=== PATIENT | female | born 1950 | race Caucasian/White ===

== ENCOUNTER 2024-11-08 10:07 | Observation (INO) | payer OTHER ==
[2024-10-30 16:26] LABS: BILIRUBIN,URINE NEGATIVE (Neg); CLARITY,URINE CLEAR (Clear); COLOR,URINE YELLOW (Yellow); GLUCOSE, URINE NEGATIVE (Neg); KETONES,URINE NEGATIVE (Neg); LEUKOCYTE ESTERASE ,URINE MODERATE (Neg); NITRITES, URINE NEGATIVE (Neg); OCCULT BLOOD,URINE NEGATIVE (Neg); PROTEIN,URINE NEGATIVE (Neg); UROBILINOGEN,URINE 0.2 E.U/dL (0.2-1.0)
[2024-10-30 16:35] LABS: UA COLLECTION TYPE CLN CATCH MIDSTREAM
[2024-10-30 16:37] LABS: BACTERIA,URINE FEW /HPF (Neg); MUCUS STRANDS FEW /LPF (Neg); RBC,URINE 0-2 /HPF (0-2); SQUAMOUS EPITHELIAL CELL,UR MODERATE /LPF (FEW); TRANSITIONAL EPI CELLS,URINE FEW /HPF; WBC CLUMPS,URINE FEW /HPF (NEGATIVE)
[2024-10-30 16:45] LABS: BASOPHILS % (AUTO) 0.6 % (0-1); EOSINOPHILS # (AUTO) 0.2 X10'3 (0-0.9); EOSINOPHILS % (AUTO) 2.5 % (0-6); LYMPHOCYTES # (AUTO) 2.5 X10'3 (1.1-4.8); LYMPHOCYTES % (AUTO) 37.2 % (21-51); MEAN CORPUSCULAR HEMOGLOBIN 31.6 PG (27.0-31.0); MEAN CORPUSCULAR HGB CONC 34.2 g/dL (33.0-36.5); MEAN CORPUSCULAR VOLUME 92.4 FL (78-98); MEAN PLATELET VOLUME 7.8 FL (7.4-10.4); MONOCYTES # (AUTO) 0.6 X10'3 (0-0.9); MONOCYTES % (AUTO) 8.7 % (2-12); NEUTROPHILS # (AUTO) 3.4 X10'3 (1.8-7.7); PRE OP HEMATOCRIT 41.3 % (35.0-45.0); PRE OP HEMOGLOBIN 14.1 g/dL (12.0-16.0); PRE OP PLATELET COUNT 275 X10'3 (140-440); PRE OP WHITE BLOOD COUNT 6.6 10'3 (4.8-10.8); RED BLOOD COUNT 4.47 X10'6 (4.20-5.60); RED CELL DISTRIBUTION WIDTH 12.7 % (11.5-14.5)
[2024-10-30 16:49] LABS: ALBUMIN 4.1 G/DL (3.4-5.0); ALKALINE PHOSPHATASE 64 IU/L (46-116); BLOOD UREA NITROGEN 17 MG/DL (7-18); BUN/CREATININE RATIO 18.5 (10.0-20.0); CALCIUM 9.5 MG/DL (8.5-10.1); CHLORIDE 106 MMOL/L (99-107); CREATININE 0.92 MG/DL (0.40-0.90); PRE OP ALT 25 U/L (30-65); PRE OP ANION GAP 4 (8-16); PRE OP AST 18 U/L (10-37); PRE OP BILIRUB, TOTAL 0.3 MG/DL (0.0-1.0); PRE OP GLUCOSE 84 MG/DL (70-104); PRE OP POTASSIUM 3.9 MMOL/L (3.4-5.1); PRE OP SODIUM 141 MMOL/L (135-145); TOTAL CARBON DIOXIDE 31.1 MMOL/L (24-32); TOTAL PROTEIN 8.1 G/DL (6.4-8.2); eGFR 60 ML/MIN
[2024-11-08] VITALS (23 sets, daily range): BP systolic 109–159; BP diastolic 52–70; PULSE 51–89; RESP 9–18; TEMP 97.7–97.8; O2SAT 98–100
[~2024-11-08] VITALS: Ht 162.6 cm; Wt 55.3 kg
[2024-11-08] MEDS: famotidine 20mg tablet PO ONE (05:30)
[~2024-11-08 10:07] MED LIST: ROSU5TAB51 PO; enalaprilat dihydrate 2.5mg/2ml vial IV PRN; labetalol 20mg/4ml (5mg/ml) syringe IV PRN; meperidine/PF 25mg/ml syringe IV PRN; morphine 2 MG/ML inj. syringe IV PRN; morphine 4 MG/ML inj SYRINge IV PRN; ondansetron/PF 4mg/2ml inj IV PRN; proCHLORperazine 10 MG/2 ml inj IV PRN
[2024-11-08] MEDS: ceFOXitin sod/dextrose 2g/50ml 50 ML IV ONE (11:06)
[2024-11-08] MEDS ORDERED: clindamycin phosphate 40gm vag cream ONE (15:09)
[2024-11-08] MEDS ORDERED: vasoPRESSIN 20 units/ml inj. ONE (15:10)
[2024-11-08] MEDS ORDERED: gentamicin 40 MG/1 ML inj ONE (15:10)
[2024-11-08] MEDS ORDERED: neomy sulf/polymyxin B sulf. GU irrigation 1ml amp IR ONE (15:12)
[2024-11-08] MEDS ORDERED: propofol inj 20 ML IV ONE (15:20)
[2024-11-08] MEDS ORDERED: LIDOcaine 2% (20mg/ml) 5ml vial ONE (15:20)
[2024-11-08] MEDS ORDERED: fentaNYL/PF 50MCG/1 ML 2ML syringe ONE (15:20)
[2024-11-08] MEDS ORDERED: midazolam 1 mg/ML 2ml injection ONE (15:20)
[2024-11-08] MEDS ORDERED: sevoflurane 250ml liquid IH ONE (15:22)
[2024-11-08] MEDS ORDERED: dexamethasone sod phosphate 4mg/ml inj. ONE (15:36)
[2024-11-08] MEDS ORDERED: acetaminophen 1,000mg/100ml IV 100 ML IV ONE (16:12)
[2024-11-08] MEDS ORDERED: LORazepam 2 mg/ml vial IV PRN (17:00)
[2024-11-08] MEDS ORDERED: temazepam 15mg capsule PO PRN (17:00)
[2024-11-08] MEDS ORDERED: diphenhydrAMINE 50 mg/ml inj IV PRN (17:00)
[2024-11-08] MEDS ORDERED: normal saline 500ml IV soln 500 ML IV PRN (17:00)
[2024-11-08] MEDS ORDERED: ondansetron/PF 4mg/2ml inj IV PRN (17:00)
[2024-11-08] MEDS ORDERED: magnesium hydroxide 30ml (MOM) UD suspension PO PRN (17:00)
[2024-11-08] MEDS ORDERED: metoclopramide 5 mg/ml inj IV PRN (17:00)
[2024-11-08] MEDS ORDERED: HYDROcodone/acetaminophen 10/325mg tab PO PRN ×2 (17:00)
[2024-11-08] MEDS: meperidine/PF 25mg/ml syringe IV PRN (17:38)
[2024-11-08] MEDS: ringers solution, lacted 1,000 ML IV SCH ×3 (18:38→21:26)
[2024-11-08] MEDS: docusate sod 100mg capsule PO SCH (21:23)
[2024-11-08] MEDS: ketorolac trometh 15mg/ml vial 15 MG/ML ML IV PRN (21:25)
[2024-11-09 02:00] VITALS: BP 105/41; PULSE 66; RESP 17; TEMP 97.7; O2SAT 100
[2024-11-09 06:00] VITALS: BP 107/46; PULSE 68; RESP 18; TEMP 97.9; O2SAT 94
[2024-11-09 08:00] VITALS: RESP 15; O2SAT 99
[2024-11-09 08:15] LABS: BASOPHILS % (AUTO) 0.2 % (0-1); EOSINOPHILS % (AUTO) 0 % (0-6); HEMATOCRIT 37.7 % (35.0-45.0); HEMOGLOBIN 12.9 g/dl (12.0-16.0); LYMPHOCYTES # (AUTO) 1.7 X10'3 (1.1-4.8); MEAN CORPUSCULAR HEMOGLOBIN 31.3 PG (27.0-31.0); MEAN CORPUSCULAR HGB CONC 34.2 g/dL (33.0-36.5); MEAN CORPUSCULAR VOLUME 91.7 FL (78-98); MEAN PLATELET VOLUME 8.1 FL (7.4-10.4); MONOCYTES # (AUTO) 0.9 X10'3 (0-0.9); MONOCYTES % (AUTO) 6.8 % (2-12); NEUTROPHILS # (AUTO) 10.4 X10'3 (1.8-7.7); PLATELET COUNT 248 X10'3 (140-440); RED BLOOD COUNT 4.11 X10'6 (4.20-5.60); RED CELL DISTRIBUTION WIDTH 12.5 % (11.5-14.5); WHITE BLOOD COUNT 13.1 X10'3 (4.5-11.0)
[2024-11-09 08:45] LABS: ALBUMIN 3.4 G/DL (3.4-5.0); ANION GAP 7 (8-16); BLOOD UREA NITROGEN 13 MG/DL (7-18); BUN/CREATININE RATIO 14.6 (10.0-20.0); CALCIUM 9.6 MG/DL (8.5-10.1); CHLORIDE 105 MMOL/L (99-107); CREATININE 0.89 MG/DL (0.40-0.90); GLUCOSE 98 MG/DL (70-104); POTASSIUM 4.4 MMOL/L (3.5-5.1); SODIUM 139 MMOL/L (135-145); TOTAL CARBON DIOXIDE 27.5 MMOL/L (24-32); eCRCL 49 ML/MIN; eGFR 62 ML/MIN
[2024-11-09 10:00] VITALS: BP 101/46; PULSE 68; RESP 15; TEMP 97.1; O2SAT 99
== END 2024-11-09 14:20 | disposition home or self-care (01) ==
LOC: PAS 10:07 → ORTHO 4S 17:14
PROVIDERS: ADMIT Obstetrics & Gynecology Obstetrics; ATTEND Obstetrics & Gynecology Obstetrics
DX: N81.3 Complete uterovaginal prolapse (principal); Z90.710 Acquired absence of both cervix and uterus; Z79.899 Other long term (current) drug therapy
CPT/HCPCS: 36415; 57260; 71046; 80048; 80053; 81001; 82948; 85025; 86885; 86900; 86901; 87081; 87088; 96374; G0378; J0131; J0694; J1100; J1580; J1885; J2003; J2175; J2250; J2405; J2704; J3010; J3490; J7120; A4338; A4618; A5200; A7000